=== PATIENT | female | born 1985 | race Caucasian/White ===

== ENCOUNTER 2020-11-02 14:49 | Outpatient (CLI) | payer BC, SELFPAY ==
--- NOTE | ~2020-11-02 | US_ITS ---
EXAMINATION: US thyroid DATE: 11/02/2020 15:06 INDICATION: Thyroid nodule. TECHNIQUE: Multiple ultrasound images of the thyroid were obtained. COMPARISON: Ultrasound 11/26/2019, 11/23/2012 FINDINGS: The right thyroid lobe measures 5.5 x 1.9 x 2.0 cm. The left thyroid lobe measures 5.6 x 2.0 x 1.9 c m. The thyroid is diffusely heterogeneous and hypoechoic with increased vascularity. In the right th yroid lobe, there is a 5 mm solid, very hypoechoic, [id number] nodule with smooth margin without echogenic foci (TI-RADS TR4). IMPRESSION: 1. 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 2. Stable small thyroid nodule, likely not clinically significant. No follow-up is needed. Reviewed, dictated and finalized at location A. COUNSELOR
== END 2020-11-02 14:50 ==
PROVIDERS: PCP Family Medicine Adolescent Medicine; Visit Provider Internal Medicine Endocrinology, Diabetes & Metabolism
DX: E04.1 Nontoxic single thyroid nodule (principal)
CPT/HCPCS: 76536

== ENCOUNTER 2022-12-17 12:48 | Outpatient (CLI) | payer BC, SELFPAY ==
--- NOTE | ~2022-12-17 | CT_ITS ---
EXAMINATION: CT abdomen pelvis w con INDICATION: Left inguinal hernia TECHNIQUE: Computed tomographic images of the abdomen and pelvis were obtained after the administrati on of 100 cc of Omnipaque 350 intravenous contrast. The dose-length product (DLP) was 705.41 mGy-cm. Automated exposure control and iterative reconstruction technique were employed. COMPARISON: 10/21/2013 FINDINGS: Minimal dependent atelectasis is present in the lung bases. The heart size is normal. The g allbladder is surgically absent. There is mild enlargement of the common bile duct and central intrah epatic ducts which is likely due to post cholecystectomy state. The liver, spleen, pancreas, and adre nal glands are normal. There is a 3 mm nonobstructing stone of the left kidney lower pole. The right kidney is unremarkable. No pathologically enlarged abdominal or pelvic lymph nodes are identified. Th ere is no free intraperitoneal gas or evidence of bowel obstruction. The appendix is normal. No defin ite hernia is identified. IMPRESSION: 1. No definite hernia identified. Reviewed, dictated and finalized at location B. HING MACHINE OPERATOR
== END 2022-12-17 12:49 ==
LOC: MICIMG 12:50
PROVIDERS: PCP Family Medicine Adolescent Medicine; Visit Provider Physician Assistant
DX: K40.90 Unilateral inguinal hernia, without obstruction or gangrene, not specified as recurrent (principal)
CPT/HCPCS: 74177; Q9967

== ENCOUNTER → 2022-12-24 07:55 | Outpatient (CLI) | payer BC, SELFPAY ==
--- NOTE | ~2022-12-24 | US_ITS ---
EXAMINATION: US soft tissue groin LT DATE: 12/24/2022 08:13 INDICATION: Left groin hernia. TECHNIQUE: Multiple grayscale and Doppler ultrasound images of the left groin were obtained. COMPARISON: CT abdomen and pelvis 12/17/22 FINDINGS: There is no abnormal mass, hernia, or lymphadenopathy in the left inguinal region. The left ovary is normal in size. IMPRESSION: 1. No abnormality in the left inguinal region. Reviewed, dictated and finalized at location A. MOTIVE WINDOW TINTER
== END ==
PROVIDERS: PCP Family Medicine Adolescent Medicine; Visit Provider Surgery
DX: R10.32 Left lower quadrant pain (principal)
CPT/HCPCS: 76882

== ENCOUNTER 2022-12-24 07:59 | Outpatient (CLI) | payer BC, SELFPAY ==
--- NOTE | ~2022-12-24 | XR_ITS ---
Lumbosacral Spine: AP and lateral views Clinical History: Pain Findings: The normal lordotic curve is maintained. The vertebral bodies and posterior elements are i ntact. The intervertebral disc spaces are preserved. The sacroiliac joints are normally outlined. Impression: No significant abnormality. Reviewed, dictated and finalized at [facility]. EXTRACTION TENDER Impression: No significant abnormality.
--- NOTE | ~2022-12-24 | XR_ITS ---
EXAMINATION: XR sacrum coccyx min 2V INDICATION: Low back pain TECHNIQUE: Three views of the sacrum and coccyx are obtained. COMPARISON: None available FINDINGS: Bone alignment is normal. There is no fracture. No abnormal erosion or sclerosis of the sac roiliac joints is identified. There are phleboliths of the pelvis. There is mild lower lumbar spondyl osis. IMPRESSION: 1. No acute osseous abnormality. Reviewed, dictated and finalized at location B. NSIC ARTIST
== END 2022-12-24 08:00 ==
LOC: MICIMG 08:00
PROVIDERS: PCP Family Medicine Adolescent Medicine; Visit Provider Physician Assistant
DX: M54.50 Low back pain, unspecified (principal)
CPT/HCPCS: 72100; 72220

== ENCOUNTER 2024-07-30 14:39 | Outpatient (CLI) | payer BC, SELFPAY ==
--- NOTE | ~2024-07-30 | MM_ITS ---
EXAMINATION: MM screening candido BI w ben HISTORY: Screening mammogram TECHNIQUE: Craniocaudal and mediolateral oblique 3-D tomosynthesis images were obtained and synthetic 2-D images were generated. CAD analysis was submitted and interpreted. COMPARISON: No prior mammogram is available for comparison at this institution. BREAST PARENCHYMAL COMPOSITION:Not Dense. There are scattered areas of fibroglandular density. FINDINGS: There is an area of asymmetric density at the upper, outer right breast. No distinct parenc hymal abnormality left breast seen. No suspicious microcalcifications in either breast. IMPRESSION: Asymmetric density upper, outer right breast. Spot compression views and ultrasound are recommended for further evaluation. BI-RADS Category 0: Incomplete: Needs additional imaging evaluation. Reviewed, dictated and finalized at [facility]. IMPRESSION: Asymmetric density upper, outer right breast. Spot compression views and ultra sound are recommended for further evaluation. BI-RADS Category 0: Incomplete: Needs additional imaging evaluation.
== END 2024-07-30 14:40 | disposition home or self-care (01) ==
PROVIDERS: PCP Family Medicine Adolescent Medicine; Visit Provider Obstetrics & Gynecology Gynecology
DX: Z12.31 Encounter for screening mammogram for malignant neoplasm of breast (principal); R92.8 Other abnormal and inconclusive findings on diagnostic imaging of breast
CPT/HCPCS: 77063; 77067

== ENCOUNTER 2024-08-11 07:43 | Outpatient (CLI) | payer BC, SELFPAY ==
--- NOTE | ~2024-08-11 | MMUS_ITS ---
EXAMINATION: MM diagnostic candido RT w ben, US breast RT limited HISTORY: Follow-up right breast asymmetry TECHNIQUE: Additional 3-D tomosynthesis images of the right breast were performed and synthetic 2-D i mages were generated. CAD analysis was submitted and interpreted. High resolution Limited right breas t ultrasound was performed. COMPARISON: 07/30/2024 BREAST PARENCHYMAL COMPOSITION: Not dense: There are scattered areas of fibroglandular density. FINDINGS: MAMMOGRAPHIC FINDINGS: The focal asymmetry in the upper outer quadrant of the right breast is less dense with spot compressi on views, likely superimposed fibroglandular tissue. ULTRASOUND: Limited right breast ultrasound: At 11:00, 8 cm from the nipple there is an oval hypoechoic parallel oriented 5 mm mass with some internal echogenic material. No posterior features or internal vasculari ty, likely benign. Also at this location there is a 3 mm cyst. At 10:00, 11 cm from the nipple there is a 3 mm cyst. IMPRESSION: 1. Probable benign right breast mass at 11:00, 8 cm from the nipple. 2. Recommend 6 month follow-up Limited right breast ultrasound BI-RADS category 3, probably benign findings. Reviewed, dictated and finalized at location B. IMPRESSION: 1. Probable benign right breast mass at 11:00, 8 cm from the nipple. 2. Recommend 6 month follow-up Limited right breast ultrasound BI-RADS category 3, probably benign findings.
== END 2024-08-11 07:44 | disposition home or self-care (01) ==
LOC: MICIMG 07:43
PROVIDERS: PCP Family Medicine Adolescent Medicine; Visit Provider Obstetrics & Gynecology Gynecology
DX: R92.8 Other abnormal and inconclusive findings on diagnostic imaging of breast (principal)
CPT/HCPCS: 76642; 77061; 77065; G0279

== ENCOUNTER 2025-02-08 10:58 | Outpatient (CLI) | payer OTHER, SELFPAY ==
--- NOTE | ~2025-02-08 | US_ITS ---
EXAMINATION: US breast RT limited HISTORY: 39-year-old woman with a maternal family history of breast cancer presents for diagnostic 6 month follow-up sonographic evaluation of the 10 and 11:00 positions of the right breast detected on baseline mammography on 08/11/2024. High resolution limited right breast ultrasound was performed. COMPARISON: Reference is made to previous ultrasound dated 08/11/2024 as well as prior baseline mammog kimi dated 07/30/2024 and diagnostic mammography dated 08/11/2024. FINDINGS: At the 10:00 position of the right breast approximately 11 cm from the nipple is a well-circumscribed primarily anechoic focus with increased through transmission, measuring 4.6 x 3.9 x 9mm consistent w ith a benign cyst, for which no further follow-up is needed. At the 11:00 position of the right breast approximately 8 cm from the nipple is a 3.1 x 2.6 x 2.2 mm focus of decreased echogenicity, likely an involuting cyst without suspicious sonographic features fo r which no further follow-up is needed. Also at the 11:00 position of the right breast approximately 8 cm from the nipple is a well-circumscr ibed focus of decreased echogenicity measuring 3.3 x 2.2 x 3.2 mm without suspicious sonographic find ings, likely another involuting cyst, for which no further follow-up is needed. Sonographic evaluation of the remainder of the upper outer quadrant of the right breast demonstrates benign fibroglandular elements without a cystic or solid lesion of concern. IMPRESSION: No sonographic evidence to suggest the presence of malignancy. Findings likely represent fibrocystic breast disease, with multiple cysts, waxing and waning in size and morphology. Resumption of yearly mammography is recommended. BI-RADS Category 2: Benign finding(s). Reviewed, dictated and finalized at location A.
== END 2025-02-08 10:59 | disposition home or self-care (01) ==
LOC: MICIMG 10:58
PROVIDERS: PCP Family Medicine Adolescent Medicine; Visit Provider Obstetrics & Gynecology Gynecology
DX: N63.11 Unspecified lump in the right breast, upper outer quadrant (principal)
CPT/HCPCS: 76642

== ENCOUNTER 2025-08-02 10:26 | Outpatient (CLI) | payer OTHER, SELFPAY ==
--- NOTE | ~2025-08-02 | MM_ITS ---
EXAMINATION: MM screening candido BI w ben HISTORY: Screening TECHNIQUE: Craniocaudal and mediolateral oblique 3-D tomosynthesis images were obtained and synthetic 2-D images were generated. CAD analysis was submitted and interpreted. COMPARISON: 07/30/2024 BREAST PARENCHYMAL COMPOSITION: There are scattered areas of fibroglandular density. FINDINGS: There is no evidence of suspicious mass, calcification, or architectural distortion to suggest malignancy. There has been no suspicious interval change. IMPRESSION: 1. No mammographic evidence of malignancy. Recommend routine screening mammography in one year. BI-RADS Category 2: Benign finding(s) Reviewed, dictated and finalized at location Q. IMPRESSION: 1. No mammographic evidence of malignancy. Recommend routine screening mammogra phy in one year. BI-RADS Category 2: Benign finding(s)
== END 2025-08-02 10:27 | disposition home or self-care (01) ==
LOC: MICIMG 10:26
PROVIDERS: PCP Family Medicine Adolescent Medicine; Visit Provider Nurse Practitioner
DX: Z12.31 Encounter for screening mammogram for malignant neoplasm of breast (principal)
CPT/HCPCS: 77063; 77067